=== PATIENT | male | born 1950 | race Asian ===

== ENCOUNTER → 2017-10-24 08:08 | Outpatient (CLI) | payer MEDICARE, OTHER, SELFPAY ==
--- NOTE | 2017-10-24 | DI.CT.S_ITS ---
PROCEDURE: CT ABDOMEN PELVIS W CON INDICATIONS: Small bowel mass, ongoing diarrea TECHNIQUE: After the administration of intravenous contrast, 5 mm thick sections acquired from the diaphragm to the symphysis. 5 mm coronal and sagittal reformats were acquired. For radiation dose reduction, the following was used: automated exposure control, adjustment of mA and/or kV according to patient size. COMPARISON: [facility], CT, ABDOMEN/PELVIS WITH CONTRAST, 09/11/2012, 12:42. FINDINGS: Image quality: Excellent. ABDOMEN: Lung bases: Lung bases are clear. Heart size is normal. Solid organs: Liver is normal in size and enhancement. Scattered sub-5 mm hyperdensities are seen throughout the left right lobes which are too small to characterize and technically indeterminate Gallbladder partially contracted otherwise unremarkable. Biliary system is non dilated. Pancreas enhances normally. Spleen is normal in size and enhancement. No adrenal nodules. Kidneys demonstrate normal size and enhancement, without hydronephrosis. Peritoneum and bowel: There is diffuse prominence of the small bowel primarily within the left upper quadrant, with possible mucosal enhancement and hyperemia. No discrete mass is seen. The colon is decompressed. There a few scattered colonic diverticula without definite evidence of acute diverticulitis. The rectum contains stool and is grossly unremarkable. The appendix is not clearly identified. Nodes and vessels: There a few scattered shotty mesenteric lymph nodes without definite retroperitoneal or mesenteric adenopathy by size criteria. Aorta and inferior vena cava are normal in size. Miscellaneous: No ventral hernias. PELVIS: Genitourinary: Bladder wall thickness is normal. Miscellaneous: Small bilateral fat containing inguinal hernias. No adenopathy. Bones: Partially visualized ill-defined focal sclerosis involving the lateral left eighth rib. Unchanged lytic lesion seen in the left posteromedial ilium with sclerotic margins, since 2012. IMPRESSION: Proximal and mid small bowel possible mild mucosal enhancement and diffuse wall thickening raising the possibility of low-grade nonspecific enteritis. This is less apparent in the distal small bowel although unclear if this is related to enterography exam technique. Please correlate clinically and with laboratory data. No discrete mass lesion identified. Dictated by: Jose Luis Campbell M.D. on 10/24/2017 at 11:22 Approved by: Jose Luis Campbell M.D. on 10/24/2017 at 11:40
== END ==
PROVIDERS: PCP Family Medicine; Visit Provider Internal Medicine Gastroenterology
DX: K63.9 Disease of intestine, unspecified (principal); R19.7 Diarrhea, unspecified
CPT/HCPCS: 74177; Q9967

== ENCOUNTER → 2021-04-03 09:45 | Outpatient (CLI) | payer MEDICARE, OTHER, SELFPAY ==
[2021-04-03 10:14] LABS: BUN Creatinine Ratio 19.5 (6-22); Blood Urea Nitrogen 16 mg/dL (9-20); Estimated Glomerular Filt Rate > 60.0 mL/min (>60)
--- NOTE | 2021-04-03 10:36 | DI.CT.S_ITS ---
PROCEDURE: CT ABDOMEN PELVIS W CON INDICATIONS: Benign neoplasm of duodenum TECHNIQUE: After the administration of oral and intravenous contrast, axial sections were acquired from the lung bases to the pubic symphysis. Coronal and sagittal reformats were performed. For radiation dose reduction, the following was used: automated exposure control, adjustment of mA and/or kV according to patient size. COMPARISON:[facility] Facility, [facility], CT ABDOMEN W/WO CONTRAST, 09/03/2011, 13:32. [facility], CT, CT ABDOMEN PELVIS W CON, 10/24/2017, 9:24. FINDINGS: Image quality: Excellent. Lung bases: Lung bases are clear. Heart size is normal. Solid organs: Liver: The liver has no mass or intrahepatic biliary ductal dilatation. The liver has multiple scattered sub 5 mm hypodensities in the right lobe, unchanged compared to the prior CT in 2018 and therefore benign. Biliary: The gallbladder has no gallstones, pericholecystic fluid, gallbladder wall thickening, or surrounding inflammatory change. Pancreas: The pancreas has no mass or ductal dilatation. There is no surrounding inflammation. Spleen: Normal size. There are no masses. Adrenals: No hypertrophy or nodules. Kidneys: No obstructive calculus or hydronephrosis. No solid mass. No cystic mass. Peritoneum and bowel: There is circumferential thickening of the 2nd, 3rd, and 4th portions of the duodenum. The small bowel has a normal caliber and appearance. The terminal ileum is normal. The large bowel has increased stool throughout consistent with constipation. The appendix is normal. No free fluid or air. Nodes and vessels: No retroperitoneal or mesenteric adenopathy by size criteria. The aorta has diffuse atherosclerotic calcifications. Miscellaneous: No abdominal wall mass or hernia. PELVIS: Genitourinary: The bladder has no wall thickening or mass. No bladder calcifications. Bones: Degenerative changes with no focal abnormality. No vertebral body compression fractures. Sclerosis of the lateral left 8th rib is again seen, but is only partially visualized. IMPRESSION: 1. 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 2. No evidence of metastatic disease or adenopathy in the abdomen or pelvis. 3. Partially visualized possible sclerosis of the left 8th rib. This could be further evaluated with chest CT and/or bone scan if clinically indicated. Dictated by: Will Becerra M.D. on 04/03/2021 at 15:18 Approved by: Will Becerra M.D. on 04/03/2021 at 15:32
== END ==
PROVIDERS: PCP Family Medicine; Referring Provider Internal Medicine Gastroenterology; Visit Provider Internal Medicine Gastroenterology
DX: D13.2 Benign neoplasm of duodenum (principal); R63.4 Abnormal weight loss; K86.1 Other chronic pancreatitis
CPT/HCPCS: 36415; 74177; 82565; 84520; Q9967

== ENCOUNTER → 2021-06-12 07:53 | Outpatient (CLI) | payer MEDICARE, OTHER, SELFPAY ==
[2021-06-12 10:40] LABS: COVID-19 CEPHEID PCR (VTM/NP) Negative (Negative)
== END ==
PROVIDERS: PCP Family Medicine; Referring Provider Internal Medicine; Visit Provider Internal Medicine
DX: Z20.822 Contact with and (suspected) exposure to COVID-19 (principal)
CPT/HCPCS: C9803; U0003

== ENCOUNTER → 2021-06-12 07:58 | Outpatient (CLI) | payer MEDICARE, OTHER, SELFPAY ==
--- NOTE | 2021-06-12 08:04 | DI.ECHO.S_ITS ---
[place] [facility]---------+ [facility] +---------+ : : [address] : : : : [id number] : : : : Phone: [phone] Echocardiogram Report + + :Name: PIOTR HAM Study Date: 06/12/2021 Height: 66 in : :[facility] ReadingLocation: Weight: 130 lb : : Gender: Male BSA: 1.7 m2 : :: 1950 Age: 70 yrs BP: 105/69 mmHg: :Reason For Study: Dyspnea : :Ordering Physician: DANIEL, : :LUKE Performed By: Justin Kenyon : :Referring: LUKE SANCHEZ : + + Interpretation Summary The ejection fraction is estimated to be 55-60%. The right atrium is moderately dilated. A prominent eustachian valve is noted. There is mild tricuspid regurgitation. The right ventricular systolic pressure is estimated to be at least 29 mmHg based on an estimated right atrial pressure of 3 mm Hg. The ascending aorta is mildly enlarged. There is no pericardial effusion. Procedure: A two-dimensional transthoracic echocardiogram with color flow and Doppler was performed. The study quality was technically adequate. There is no prior echocardiogram noted for this patient. The patient was in normal sinus rhythm during the exam. Left Ventricle: The left ventricle is normal in size and wall thickness. The ejection fraction is estimated to be 55-60%. There is a mild dyssynchronous contraction pattern, consistent with a conduction abnormality. Right Ventricle: The right ventricle is normal in size and function. Atria: The left atrial size is normal. The right atrium is moderately dilated. A prominent eustachian valve is noted. There is no Doppler evidence for an interatrial shunt. Mitral Valve: The mitral valve is normal. There is trace mitral regurgitation. Aortic Valve: The aortic valve is trileaflet. The aortic valve opens well. There is trace aortic regurgitation. Tricuspid Valve: The tricuspid valve is normal. There is mild tricuspid regurgitation. The right ventricular systolic pressure is estimated to be at least 29 mmHg based on an estimated right atrial pressure of 3 mm Hg. Pulmonic Valve: The pulmonic valve leaflets are thin and pliable; valve motion is normal. There is mild pulmonic regurgitation. Great Vessels: The aortic root is normal size. The ascending aorta is mildly enlarged. The aortic arch is normal in size. The IVC is of normal diameter and collapses greater than 50% with a sniff. This suggests a low right atrial pressure of 3 mm Hg. Pericardium/ Pleura There is no pericardial effusion. There is no pleural effusion. MMode/2D Measurements & Calculations LVIDd: 4.4 cm LVOT diam: 2.1 cm LVIDs: 3.0 cm Ao root diam: 3.4 cm FS: 33.7 % asc Aorta Diam: 4.2 cm IVSd: 0.65 cm Ao Arch Diam (Prox Trans): 2.9 cm LVPWd: 0.75 cm LV asencio. diameter/BSA (cm/m^2): 2.7 LV sys. diameter/BSA (cm/m^2): 1.8 LA A2 area: 16.2 cm2 RA long axis: 5.4 cm LA A4 area: 12.2 cm2 RA area: 20.0 cm2 LA length (vol): 4.0 cm RA vol: 62.8 ml LA vol: 42.2 ml RA : 37.7 ml/m2 LA vol index: 25.3 ml/m2 TAPSE: 3.1 cm Doppler Measurements & Calculations Ao V2 max: 128.4 cm/sec LVOT Max Lucian: 102.1 cm/sec Ao V2 mean: 78.3 cm/sec LV V1 max P.2 mmHg Ao max P.6 mmHg LV V1 VTI: 19.4 cm Ao mean P.8 mmHg ANTONIO(I,D): 2.9 cm2 Ao V2 VTI: 23.0 cm ANTONIO(V,D): 2.7 cm2 sev ratio: 0.84 ANTONIO indexed to BSA (cm^2/m^2): 1.7 MV E max lucian: 56.9 cm/sec TR max lucian: 254.7 cm/sec MV A max lucian: 69.4 cm/sec TR max P.0 mmHg MV E/A: 0.82 PA V2 max: 83.7 cm/sec Med Peak E' Lucian: 5.2 cm/sec PA V2 mean: 54.1 cm/sec E/E' med: 10.9 PA mean P.3 mmHg Lat Peak E' Lucian: 7.9 cm/sec PA pr(Accel): 29.3 mmHg E/E' lat: 7.2 E/e' average: 9.1 MV dec time: 0.19 sec SV(LVOT): 65.9 ml Reading Physician:01:16 PM
[2021-06-12 08:41] LABS: BUN Creatinine Ratio 16.1 (6-22); Blood Urea Nitrogen 15 mg/dL (9-20); Estimated Glomerular Filt Rate > 60.0 mL/min (>60)
--- NOTE | 2021-06-12 09:01 | DI.CT.S_ITS ---
PROCEDURE: CT CHEST W CON INDICATIONS: Dyspnea, unspecified TECHNIQUE: After the administration of intravenous contrast, 5 mm thick sections acquired from the pulmonary apices to the posterior costophrenic angles. 1 mm axial lung, 5 mm thick coronal and sagittal reformats and 7 mm axial MIP were acquired. For radiation dose reduction, the following was used: automated exposure control, adjustment of mA and/or kV according to patient size. COMPARISON: [facility], CT, CT ABDOMEN PELVIS W CON, 04/03/2021, 11:58. FINDINGS: Image quality: Excellent. Lungs and pleura: Left upper lobe postobstructive pneumonia. There are is [id number] distal bronchial wall thickening with surrounding ground-glass opacity. For example at the left lung base, (3/227), new. A small left inferior medial pleural nodule measuring 1.1 cm. No pleural effusions or pneumothorax. Left upper lobe bronchus is severely narrowed or occluded. The lower lobe bronchus is severely narrowed. Mediastinum: Left hilar mass measuring 7.6 x 5.9 cm, (2/32). Heart size is normal. No pericardial effusion. No mediastinal or hilar adenopathy by size criteria. Thoracic aorta and central pulmonary arteries are normal in size. Ascending aorta measures 3.6 cm. Mild contour abnormality of the left main pulmonary artery adjacent to the mass. left pulmonary artery. Esophagus is normal in caliber. No hiatal hernia. Bones and chest wall: No suspicious bony lesions. No vertebral body compression fractures. Prior left 8th rib fracture. No axillary or supraclavicular adenopathy by size criteria. Thyroid gland is unremarkable. Abdomen: Punctate hypodensity in the right lobe of the liver is unchanged and has the appearance of a benign cyst. No adrenal nodule demonstrated. Duodenum is not well visualized. IMPRESSION: 1. Large left hilar mass measuring 7.6 cm. This is highly suspicious for malignancy. 2. Narrowing of the left bronchi with left upper lobe postobstructive pneumonia. 3. Small inferior medial left pleural nodule measuring 1.1 cm is indeterminate for metastatic disease. 4. [id number] left lung bronchioles wall thickening and surrounding ground-glass opacity. Favor infectious/inflammatory etiology. Comment: Findings were conveyed to the office of Dallin Ramirez at the time of dictation. Discussed with CROW Christian. Dictated by: Cody Trent M.D. on 06/12/2021 at 9:15 Approved by: Cody Trent M.D. on 06/12/2021 at 9:34
== END ==
PROVIDERS: Internal Medicine Gastroenterology; PCP Family Medicine; Referring Provider Internal Medicine; Visit Provider Internal Medicine
DX: I07.1 Rheumatic tricuspid insufficiency (principal); I37.1 Nonrheumatic pulmonary valve insufficiency; I77.89 Other specified disorders of arteries and arterioles; R06.00 Dyspnea, unspecified; R91.8 Other nonspecific abnormal finding of lung field; J18.9 Pneumonia, unspecified organism; R04.2 Hemoptysis; Z20.822 Contact with and (suspected) exposure to COVID-19; R06.02 Shortness of breath; Z87.891 Personal history of nicotine dependence; J98.8 Other specified respiratory disorders
CPT/HCPCS: 36415; 71260; 82565; 84520; 93306; 94060; 94729; C9803; U0003

== ENCOUNTER → 2021-06-12 08:04 | Outpatient (CLI) | payer MEDICARE, OTHER, SELFPAY ==
--- NOTE | 2021-06-15 08:54 | P.PFT.S_ITS ---
Pulmonary Function Test Referral & Results Date Patient Seen: 06/12/21 Requesting provider: Dallin aRmirez Results: The spirometry demonstrates an FVC of 1.95 L which is 52% of predicted. The FEV1 was measured at 1.37 L which is 50% of predicted. The FEV1/FVC ratio was 70 which is 96% of predicted. Following the administration of bronchodilator there was no appreciable change. The diffusing capacity was measured at 19.27 which is 71% of predicted. No hemo globin value was provided, so no correction for potential anemia could be made, if appropriate. Interpretation: This study demonstrates probable mild to moderate obstructive lung disease based on reduction FEV1 although FEV1/FVC ratio is preserved and there is no evidence of benefit following bronchodilator.
== END ==
PROVIDERS: PCP Family Medicine; Referring Provider Internal Medicine; Visit Provider Internal Medicine
DX: R06.02 Shortness of breath (principal); Z87.891 Personal history of nicotine dependence; J98.8 Other specified respiratory disorders
CPT/HCPCS: 94060; 94729